=== PATIENT | male | born 1980 | race Caucasian/White ===

== ENCOUNTER 2018-07-22 13:07 | Emergency (ER) ==
--- NOTE | 2018-07-22 13:16 | ED.PDOC ---
General ED Provider: Dr. RODRIGO ACEVES Stated Complaint: altered mental status. Found by cathy berger hiding in a garage. Appearance of confusion,crying , disorientatn /disoriented/ , Time Seen by Physician: 13:05 Mode of Arrival: Wheelchair Information Source: Patient, Police Exam Limitations: Clinical condition, Altered mental status Seen Within Last 72 Hours for Same Complaint By: ED Nursing and Triage Documentation Reviewed and Agree: Yes Does patient meet sepsis criteria?: No System Inflammatory Response Syndrome: Not Applicable Sepsis Protocol: For patient's 13 years and over: Temp is 96.8 and below OR 101 and greater Pulse >90 BPM Resp >20/minute Acutely Altered Mental Status Are patient's symptoms suggestive of a new infection, such as: -Pneumonia -Skin, Soft Tissue -Endocarditis -UTI -Bone, Joint Infection -Implantable Device -Acute Abdominal Infection -Wound Infection -Meningitis -Blood Stream Catheter Infection -Unknown Review of Systems - Review Of Systems Constitutional: Reports: No symptoms Eyes: Reports: No symptoms Ears, Nose, Mouth, Throat: Reports: No symptoms Respiratory: Reports: No symptoms Cardiac: Reports: No symptoms GI: Reports: No symptoms : Reports: No symptoms Musculoskeletal: Reports: No symptoms Skin: Reports: No symptoms Neurological: Reports: Anxiety, Headache Endocrine: Reports: No symptoms Hematologic/Lymphatic: Reports: No symptoms All Other Systems: Reviewed and Negative Past Medical History - Past Medical History Endocrine: Reports: Unknown Cardiovascular: Reports: Unknown Respiratory: Reports: Unknown Hematological: Reports: Unknown Gastrointestinal: Reports: Unknown Genitourinary: Reports: Unknown Neuro/Psych: Reports: Unknown Musculoskeletal: Reports: Unknown Cancer: Reports: Unknown - Surgical History General Surgical History: Reports: None - Family History Family History: Reports: None Physical Exam - Physical Exam Appearance: Ill-appearing, Thin (poor hygeine) Ill-appearing: Moderate Pain Distress: Mild Eyes: RAHUL, EOMI, Conjunctiva clear ENT: Ears normal, Nose normal, Oropharynx normal Neck: Supple Respiratory: Airway patent, Breath sounds clear, Breath sounds equal, Respirations nonlabored Cardiovascular: RRR, Pulses normal, No rub, No murmur GI/: Soft, Nontender, No masses, Bowel sounds normal, No Organomegaly Musculoskeletal: Normal strength Skin: Warm Neurological: Sensation intact, Motor intact, Reflexes intact, Cranial nerves intact, Alert, Alert to verbal, Alert to pain Psychiatric: Anxious Critical Care Note - Critical Care Note Total Time (mins): 60 Course - Course Hematology/Chemistry: 07/22/18 13:50 07/22/18 13:50 Orders, Labs, Meds: Lab Review 07/22/18 07/22/18 07/22/18 13:50 13:50 13:50 WBC 6.52 RBC 4.61 L Hgb 14.7 Hct 43.2 MCV 93.7 MCH 31.9 H MCHC 34.0 RDW Coeff of Adriana 13.3 Plt Count 355 Immature Gran % (Auto) 0.6 Neut % (Auto) 47.6 Lymph % (Auto) 39.4 Dixon % (Auto) 9.4 Eos % (Auto) 2.1 Baso % (Auto) 0.9 Immature Gran # (Auto) 0.0 Neut # (Auto) 3.1 Lymph # (Auto) 2.6 Dixon # (Auto) 0.6 Eos # (Auto) 0.1 Baso # (Auto) 0.1 Sodium 139.4 Potassium 3.89 Chloride 100.6 Carbon Dioxide 27.5 Anion Gap 15.19 BUN 15.3 Creatinine 1.06 Estimated GFR (MDRD) 78.00 BUN/Creatinine Ratio 14.43 Glucose 101.4 Calcium 9.75 Magnesium 2.26 Total Bilirubin 0.42 AST 58.7 ALT 106.7 H Alkaline Phosphatase 78.2 Total Creatine Kinase 102.3 Troponin I < 0.012 Total Protein 8.00 Albumin 5.03 H Globulin 2.97 Albumin/Globulin Ratio 1.69 Amylase 49.1 Procalcitonin < 0.05 TSH Urine Color Urine Clarity Urine pH Ur Specific [place] Urine Protein Urine Glucose (UA) Urine Ketones Urine Blood Urine Nitrite Urine Bilirubin Urine Urobilinogen Ur Leukocyte Esterase Salicylate Level mg/dL Urine Opiates Screen Ur Oxycodone Screen Urine Methadone Screen Ur Propoxyphene Screen Acetaminophen Ur Barbiturates Screen U Tricyclic Antidepress Ur Phencyclidine Scrn Ur Amphetamine Screen U Methamphetamines Scrn U Benzodiazepines Scrn Urine Cocaine Screen U Cannabinoids Screen Plasma/Serum Alcohol 07/22/18 07/22/18 07/22/18 13:50 15:25 15:38 WBC RBC Hgb Hct MCV MCH MCHC RDW Coeff of Adriana Plt Count Immature Gran % (Auto) Neut % (Auto) Lymph % (Auto) Dixon % (Auto) Eos % (Auto) Baso % (Auto) Immature Gran # (Auto) Neut # (Auto) Lymph # (Auto) Dixon # (Auto) Eos # (Auto) Baso # (Auto) Sodium Potassium Chloride Carbon Dioxide Anion Gap BUN Creatinine Estimated GFR (MDRD) BUN/Creatinine Ratio Glucose Calcium Magnesium Total Bilirubin AST ALT Alkaline Phosphatase Total Creatine Kinase Troponin I Total Protein Albumin Globulin Albumin/Globulin Ratio Amylase Procalcitonin TSH 2.950 Urine Color Urine Clarity Urine pH Ur Specific [place] Urine Protein Urine Glucose (UA) Urine Ketones Urine Blood Urine Nitrite Urine Bilirubin Urine Urobilinogen Ur Leukocyte Esterase Salicylate Level mg/dL < 1.00 Urine Opiates Screen Negative Ur Oxycodone Screen Negative Urine Methadone Screen Negative Ur Propoxyphene Screen Negative Acetaminophen < 10.0 L Ur Barbiturates Screen Negative U Tricyclic Antidepress Negative Ur Phencyclidine Scrn Negative Ur Amphetamine Screen Positive U Methamphetamines Scrn Positive U Benzodiazepines Scrn Negative Urine Cocaine Screen Negative U Cannabinoids Screen Positive Plasma/Serum Alcohol < 10.0 07/22/18 15:38 WBC RBC Hgb Hct MCV MCH MCHC RDW Coeff of Adriana Plt Count Immature Gran % (Auto) Neut % (Auto) Lymph % (Auto) Dixon % (Auto) Eos % (Auto) Baso % (Auto) Immature Gran # (Auto) Neut # (Auto) Lymph # (Auto) Dixon # (Auto) Eos # (Auto) Baso # (Auto) Sodium Potassium Chloride Carbon Dioxide Anion Gap BUN Creatinine Estimated GFR (MDRD) BUN/Creatinine Ratio Glucose Calcium Magnesium Total Bilirubin AST ALT Alkaline Phosphatase Total Creatine Kinase Troponin I Total Protein Albumin Globulin Albumin/Globulin Ratio Amylase Procalcitonin TSH Urine Color Yellow Urine Clarity Clear Urine pH 5.5 Ur Specific [place] 1.020 Urine Protein Negative Urine Glucose (UA) Negative Urine Ketones Negative Urine Blood Negative Urine Nitrite Negative Urine Bilirubin Negative Urine Urobilinogen 0.2 Ur Leukocyte Esterase Negative Salicylate Level mg/dL Urine Opiates Screen Ur Oxycodone Screen Urine Methadone Screen Ur Propoxyphene Screen Acetaminophen Ur Barbiturates Screen U Tricyclic Antidepress Ur Phencyclidine Scrn Ur Amphetamine Screen U Methamphetamines Scrn U Benzodiazepines Scrn Urine Cocaine Screen U Cannabinoids Screen Plasma/Serum Alcohol Orders Category Date Time Status EKG-(ED ONLY) Stat CARDIO 07/22/18 13:17 Completed IV [ED IV/MEDIPORT/POWERPORT] .ONCE EMERGENCY 07/22/18 13:17 Active ACETAMINOPHEN Stat LAB 07/22/18 13:50 Completed ALCOHOL LEVEL [BLOOD ALCOHOL] Stat LAB 07/22/18 15:25 Completed AMYLASE Stat LAB 07/22/18 13:50 Completed BLOOD CULTURE (ED ONLY) Stat LAB 07/22/18 13:50 Results CBC W/ AUTO DIFF Stat LAB 07/22/18 13:50 Completed CMP [COMPREHENSIVE METABOLIC PANEL] Stat LAB 07/22/18 13:50 Completed CPK [CREATINE KINASE] Stat LAB 07/22/18 13:50 Completed MAGNESIUM Stat LAB 07/22/18 13:50 Completed PROCALCITONIN Stat LAB 07/22/18 13:50 Completed SALICYLATE Stat LAB 07/22/18 13:50 Completed THYROID STIMULATING HORMONE Stat LAB 07/22/18 13:50 Completed TROPONIN I Stat LAB 07/22/18 13:50 Completed UA [URINALYSIS C & S IF INDICATED] Stat LAB 07/22/18 15:38 Completed URINE DRUG SCREEN (RAPID FOR ED) [DRUG SCREEN, URINE, LAB 07/22/18 15:38 Completed RAPID] Stat 0.9 % Sodium Chloride [Saline Flush] MEDS 07/22/18 13:21 Discontinued 1 syr IVF PRN PRN Ondansetron HCl/Pf [Zofran 4 mg/2 ml] MEDS 07/22/18 13:22 Discontinued 4 mg IVP ONCE STA Sodium Chloride 0.9% [Sodium Chloride] 1,000 ml MEDS 07/22/18 13:21 Discontinued IV BOLUS CHEST, 1V AP ONLY Stat RADS 07/22/18 13:19 Completed Medications Discontinued Medications Generic Name Dose Route Start Last Admin Trade Name Freq PRN Reason Stop Dose Admin Sodium Chloride 1,000 mls @ 1,000 mls/hr 07/22/18 13:21 07/22/18 13:52 Sodium Chloride IV 07/22/18 14:20 1,000 mls/hr BOLUS STA Administration Ondansetron HCl 4 mg 07/22/18 13:22 07/22/18 13:53 Zofran 4 Mg/2 Ml IVP 07/22/18 13:23 4 mg ONCE STA Administration Sodium Chloride 1 syr 07/22/18 13:21 07/22/18 13:53 Saline Flush IVF 1 syr PRN PRN Administration To flush IV Vital Signs: Temp Pulse Resp BP Pulse Ox 07/22/18 14:39 83 15 124/76 07/22/18 13:57 87 17 127/96 H 07/22/18 13:07 97.9 F 110 H 20 120/91 H 97 Departure - Departure Time of Disposition: 15:40 Disposition: HOME SELF-CARE Discharge Problem: Altered mental status, Methamphetamine abuse Instructions: Methamphetamine Abuse (ED), Altered Mental Status (ED) Condition: Fair Pt referred to PMD for follow-up: Yes IPMP verified?: No Additional Instructions: Avoid use of Meth See PCP next week Follow up prn Allergies/Adverse Reactions: Allergies aspirin Allergy (Verified 07/22/18 13:17) hives tramadol Allergy (Verified 07/22/18 13:17) hives vomiting Home Medications: Ambulatory Orders 1 [No Reported Medications] 07/22/18 Disposition Discussed With: Patient
[2018-07-22 13:17] VITALS: TEMP 97.9; BMI 24.4
[2018-07-22] MEDS ORDERED: SODIUM CHLORIDE 1,000 ML IV STA (13:21)
[2018-07-22] MEDS ORDERED: ZOFRAN 4 MG/2 ML IVP STA (13:22)
--- NOTE | 2018-07-22 14:01 | DI ---
EXAM: Single view of the chest. History: Altered mental status. Comparison: Chest radiograph 12/05/2009 Findings: Heart size is within normal limits. No focal consolidation. No appreciable pleural fluid and no pneumothorax. No change in the chronic old healed fracture deformity of the right clavicle. Impression: No acute cardiopulmonary process
[2018-07-22 14:39] VITALS: BP 124/76
== END 2018-07-22 15:42 | disposition home or self-care (01) ==
LOC: ED 13:07
DX: R41.82 Altered mental status, unspecified (principal); F15.10 Other stimulant abuse, uncomplicated
CPT/HCPCS: 36415; 80053; 80306; 80307; 81001; 82150; 82550; 83735; 84145; 84443; 84484; 85025; 87040; 93005; 93010; 96361; 96374; 99284